=== PATIENT | female | born 1960 | race Caucasian/White ===

== ENCOUNTER 2016-08-26 11:13 | Emergency (ER) | payer OTHER ==
--- NOTE | ~2016-08-26 | CT16 ---
[facility] A Service of [facility] RADIOLOGY TEXT RESULTS PATIENT: RITA WRIGHT LOCATION: SED : 58 UNIT #: [id number] AGE: [address]: Connie Pedersen MD SEX: F ORDER DR: [id number] [address] [address] [id number] E MR#: [id number] Acc #: [id number] NAME: RITA WRIGHT : 1960 SEX: F STUDY DATE/TIME: 08/26/2016 13:16 UNIT: SED ROOM: STUDY DESCRIPTION: CT Angio Chest for PE Attending Physician: Connie Pedersen M.D. Ordering Physician: Connie Pedersen M.D. Primary Care Physician: Kai Dill M.D. MEDICAL IMAGING REPORT This report is preliminary unless electronic signature is present. EXAM CT angiogram of the chest for pulmonary embolism, 08/26/2016 13:16 hours HISTORY 56-year-old woman complaining of acute onset of shortness of air with right upper chest pain beginning at 10:00 a.m. today. Evaluate for pulmonary embolism. COMPARISON CT angiogram of the chest, 11/06/[address] angiographic images were obtained from the thoracic inlet through the adrenal glands. 3-D sagittal and coronal reconstructions were performed. Contrast was Isovue-370, 100 mL IV. Total exam DLP 694 mGy-cm. This CT exam was performed with one or more of the following radiation dose reduction techniques: automatic exposure control, adjustment of mA and/or kV according to patient size, and iterative reconstruction. FINDINGS Images through the thoracic inlet demonstrate no thyroid lesion or supraclavicular adenopathy. Images through the chest demonstrate diagnostic quality opacification of the pulmonary arteries which are normal in caliber. There are no filling defects present to suggest the presence of pulmonary emboli. The aorta is moderately well opacified. The aorta is within normal limits for size and there is no dissection. The cardiac chambers and pericardium are normal. There is no pathologic adenopathy. The esophagus is unremarkable. Lung window images demonstrate no acute pulmonary densities. There is no STS. [facility] A Service of [facility] RADIOLOGY TEXT RESULTS PATIENT: RITA WRIGHT LOCATION: SED : 58 UNIT #: [id number] AGE: [address]: Connie Pedersen MD SEX: F ORDER DR: bleb or bullae. There is very minimal linear density at both extreme lung bases similar to 11/06/2005, likely chronic atelectasis or scar. Limited views through the upper abdomen are unremarkable. IMPRESSION 1. No evidence of pulmonary embolism. No aortic aneurysm or dissection. 2. Minimal linear density at both lung bases dependently similar to 2005 consistent with chronic atelectasis or scar. There is no pleural effusion or pneumothorax. No rib lesion seen. Dictated by... Kacy Jonas M.D. THIS IS AN ELECTRONICALLY VERIFIED REPORT Kacy Jonas M.D. at 08/27/2016 9:23 AM Violeta TD: 08/26/2016 15:20 JOB #: [id number] MEDICAL IMAGING REPORT Page 1 of 1
--- NOTE | ~2016-08-26 | EKG ---
PATIENT: RITA WRIGHT UNIT #: [id number] Ventricular Rate: 91 BPM Atrial Rate: 91 BPM P-R Interval: 122 ms QRS Duration: 66 ms Q-T Interval: 320 ms QTC Calculation(Bezet): 393 ms P [place]: 24 degrees Calculated R [place]: 29 degrees Calculated T [place]: 46 degrees Diagnosis Line: Normal sinus rhythm Diagnosis Line: Normal ECG Diagnosis Line: When compared with ECG of 12-APR-2009 14:04, Diagnosis Line: Vent. rate has increased BY 35 BPM Diagnosis Line: Confirmed by PAUL PUCKETT MD ([id number]) on Diagnosis Line: 08/27/2016 10:58:09 AM INTERPRETING MD: ITALO ALFREDO
--- NOTE | ~2016-08-26 | CR72 ---
[facility] A Service of [facility] RADIOLOGY TEXT RESULTS PATIENT: RITA WRIGHT JANICE LOCATION: SED : 58 UNIT #: [id number] AGE: [address]: Connie Pedersen MD SEX: F ORDER DR: [id number] [address] [address] [id number] E MR#: [id number] Acc #: [id number] NAME: RITA WRIGHT : 1960 SEX: F STUDY DATE/TIME: 08/26/2016 11:41 UNIT: SED ROOM: STUDY DESCRIPTION: CR Chest Single View Portable Attending Physician: Connie Pedersen M.D. Ordering Physician: Connie Pedersen M.D. Primary Care Physician: Kai Dill M.D. MEDICAL IMAGING REPORT This report is preliminary unless electronic signature is present. EXAM Chest portable 08/26/2016 1141 hours HISTORY 56-year-old woman with shortness of air, right upper chest pain upon awakening today. COMPARISON 10/16/2010. FINDINGS Portable upright chest film demonstrates normal cardiac, mediastinal and aortic contours. The lungs are well expanded and clear. There is no pleural effusion, pneumothorax or rib lesion. IMPRESSION No acute cardiopulmonary findings. No change from 10/16/2010. Dictated by... Kacy Jonas M.D. THIS IS AN ELECTRONICALLY VERIFIED REPORT Kacy Jonas M.D. at 08/26/2016 2:31 PM KANU/mark TD: 08/26/2016 13:00 JOB #: [id number] MEDICAL IMAGING REPORT Page 1 of 1
[~2016-08-26 11:13] MED LIST: AMOXICILLIN PO; BACTRIM DS TABL1 TAB PO; CIPRO PO; DOXYCYCLINE MO100 MG PO; DOXYCYCLINE PO; FLEXERIL PO; FLEXERIL10 MG PO; HUMIBID DM1 TAB.SR . PO; HYCODAN60 ML 5MG/ PO; IBUPROFEN800 MG PO; NO MEDICATIONS; OMNICEF300 MG PO; PHENERGAN25 M1 PO; PREDNISONE PO; PYRIDIUM PO; ROBITUSSIN A-C-S1 ML DOB; ULTRAM PO; VIBRAMYCIN100 M1 PO; ZITHROMAX PO
[2016-08-26] MEDS ORDERED: ANXIETY MED (11:14)
[2016-08-26 11:50] LABS: BASOPHIL% 0.3 % (0-2.5); EOSINOPHIL# 0.2 X10e3 (0-0.7); EOSINOPHIL% 2.7 % (0.0-7.0); HEMATOCRIT 42.7 % (35.0-45.0); HEMOGLOBIN 14.2 gm/dL (12.0-16.0); LYMPHOCYTE# 1.4 X10e3 (1.0-3.5); LYMPHOCYTE% 24.2 % (17.0-45.0); MEAN CELL VOLUME 87.9 FL (83-96); MEAN CORPUSCULAR HEMOGLOBIN 29.1 PG (28-34); MEAN CORPUSCULAR HGB CONC 33.2 g/dL (30-36); MEAN PLATELET VOLUME 9.5 FL (6.5-11.5); MONOCYTE# 0.4 X10e3 (0-1.0); MONOCYTE% 6.3 % (3.0-12.0); NEUTROPHIL# 3.8 X10e3 (1.5-7.1); NEUTROPHIL% 66.5 % (40-75); PLATELET COUNT 160 X10e3 (140-420); RED BLOOD COUNT 4.86 X10e (3.90-5.30); WHITE BLOOD COUNT 5.8 X10e3 (4.0-10.5)
[2016-08-26 11:54] LABS: POC - CKMB 1.6 ng/mL (0.0-7.9); POC - TROPONIN <0.05 ng/mL (<=0.05)
[2016-08-26 11:54] LABS: DIFF IND NO
[2016-08-26 12:06] LABS: ALBUMIN SERUM 4.1 g/dL (3.5-5.0); ALKALINE PHOSPHATASE 67 U/L (32-92); ALT (SGPT) 21 U/L (10-40); AST (SGOT) 23 U/L (10-42); BILIRUBIN,TOTAL 0.3 mg/dL (0.2-2.0); BLOOD UREA NITROGEN 13 mg/dL (9-23); BUN/CREATININE RATIO 14.44; CARBON DIOXIDE 26 mmol/L (22-31); CHLORIDE 104 mmol/L (100-111); CREATININE SERUM 0.9 mg/dL (0.6-1.4); GLUCOSE FASTING 101 mg/dL (70-110); PARTIAL THROMBOPLASTIN TIME 26.6 SECONDS (25.6-38.1); POTASSIUM 4.1 mmol/L (3.5-5.1); PROTEIN TOTAL SERUM 7.2 g/dL (6.0-8.3); SODIUM 138 mmol/L (135-145)
[2016-08-26 12:07] LABS: BILIRUBIN, DIRECT <0.1 mg/dL (0.0-0.2); BILIRUBIN,INDIRECT 0.2 mg/dL (0.0-0.9)
[2016-08-26 13:27] LABS: POC - CKMB <1.0 ng/mL (0.0-7.9); POC - TROPONIN <0.05 ng/mL (<=0.05)
== END 2016-08-26 14:49 | disposition home or self-care (01) ==
LOC: SED 11:13
PROVIDERS: Emergency Medicine
DX: R09.1 Pleurisy (principal); F32.9 Major depressive disorder, single episode, unspecified
CPT/HCPCS: 36415; 71010; 71275; 80048; 80076; 82553; 84484; 85025; 85379; 85610; 85730; 93005; 96374; 99285; J1885; Q9967

== ENCOUNTER 2016-09-15 18:28 | Emergency (ER) | payer OTHER ==
[~2016-09-15] VITALS: Ht 167.6 cm; Wt 84.4 kg
--- NOTE | ~2016-09-15 | CT4 ---
[facility] A Service of [facility] RADIOLOGY TEXT RESULTS PATIENT: RITA WRIGHT JANICE [place] [facility] 58 UNIT #: [id number] AGE: [address]: Smooth Hewitt MD SEX: F ORDER DR: [id number] [address] [address] [id number] E MR#: [id number] Acc #: [id number] NAME: RITA WRIGHT : 1960 SEX: F STUDY DATE/TIME: 09/15/2016 20:49 UNIT: SED ROOM: STUDY DESCRIPTION: CT Abd and Pelv Wo Cont Attending Physician: Smooth Hewitt M.D. Ordering Physician: Smooth Hewitt M.D. Primary Care Physician: Kai Dill M.D. MEDICAL IMAGING REPORT This report is preliminary unless electronic signature is present. EXAMINATION CT abdomen and pelvis without contrast. DATE 09/15/2016 at 20:49 HISTORY 56-year-old female with left flank pain for 1 day. Previous history of kidney stones and frequent urinary tract infections. COMPARISON Noncontrast CT abdomen 12/26/2006. PROCEDURE 3 mm noncontrast axial images through the abdomen and pelvis. Enteric contrast was not administered. Sagittal and coronal reformatted images were obtained. This CT exam was performed with one or more of the following radiation dose reduction techniques: automatic exposure control, adjustment of mA and/or kV according to patient size, and iterative reconstruction. FINDINGS ABDOMEN FINDINGS: There is mild left hydronephrosis and left hydroureter. However, no ureteral stone or urinary bladder stone is identified. Findings may indicate a recently passed left side stone. No intrarenal calculi are identified. 7 mm low-density lesion projects posteriorly from the right upper renal pole with density measurements compatible with benign cyst. Lung bases are clear. Heart size is normal. Liver, gallbladder, spleen, pancreas and adrenal glands are normal. There is a large stool burden [facility] A Service of [facility] RADIOLOGY TEXT RESULTS PATIENT: RITA WRIGHT JANICE LOCATION: SED : 58 UNIT #: [id number] AGE: [address]: Smooth Hewitt MD SEX: F ORDER DR: within the cecum and ascending colon, more moderate stool burden in the transverse colon. No obstructing abnormality is identified. Unopacified bowel appears grossly nonthickened and noninflamed. The appendix is normal. PELVIS FINDINGS: There is ill-defined soft tissue stranding surrounding the urinary bladder, raising the possibility of cystitis in the appropriate clinical context. The rectum is normal. No pelvic free fluid is identified. Multilevel degenerative changes within the lumbar spine. No acute osseous abnormalities are identified. IMPRESSION 1. Mild perivesical stranding may represent changes of cystitis. Correlate with clinical symptoms and urinalysis findings. 2. There is mild left hydronephrosis and hydroureter but no urinary tract stone is seen. No stones seen within the urinary bladder. Findings could represent changes of recently passed left side stone. 3. Suspected subcentimeter right renal cyst. 4. Large stool burden in the ascending colon, greatest in the cecum. No obstructing abnormality seen. Correlate for constipation symptoms. 5. The appendix is normal. Dictated by... Macarena Hurst M.D. THIS IS AN ELECTRONICALLY VERIFIED REPORT Macarena Hurst M.D. at 09/16/2016 9:49 PM Erika TD: 09/15/2016 22:42 JOB #: [id number] MEDICAL IMAGING REPORT Page 1 of 1
[~2016-09-15 18:28] MED LIST changes: +ANXIETY MED
[2016-09-15 20:37] LABS: URINE SOURCE CLEAN CATCH
[2016-09-15 20:39] LABS: URINE APPEARANCE SL CLOUDY; URINE BILIRUBIN NEG (NEG); URINE BLOOD 3+ (NEG); URINE COLOR YELLOW; URINE GLUCOSE NEG (NORM); URINE KETONE TRACE (NEG); URINE LEUKOCYTE ESTERASE 3+ (NEG); URINE NITRATE NEG (NEG); URINE PH 5.5 (5-8); URINE PROTEIN 2+ (NEG); URINE SPECIFIC GRAVITY >=1.030 (1.003-1.035)
[2016-09-15 20:41] LABS: MICRO INDICATED? YES
[2016-09-15 20:42] LABS: URINE BACTERIA 1+ (NEG); URINE MUCUS PRESENT; URINE SQUAMOUS EPITHELIAL CELL OCCAS /[HPF]; URINE TRANSITIONAL EPI CELLS FEW /[HPF]; URINE WBC 200-300 /[HPF] (0-5)
[2016-09-15 21:02] LABS: BASOPHIL% 0.4 % (0-2.5); EOSINOPHIL# 0.1 X10e3 (0-0.7); EOSINOPHIL% 1.1 % (0.0-7.0); HEMATOCRIT 41.9 % (35.0-45.0); HEMOGLOBIN 13.9 gm/dL (12.0-16.0); LYMPHOCYTE# 1.3 X10e3 (1.0-3.5); LYMPHOCYTE% 13.7 % (17.0-45.0); MEAN CELL VOLUME 88.5 FL (83-96); MEAN CORPUSCULAR HEMOGLOBIN 29.3 PG (28-34); MEAN CORPUSCULAR HGB CONC 33.1 g/dL (30-36); MEAN PLATELET VOLUME 9.4 FL (6.5-11.5); MONOCYTE# 0.5 X10e3 (0-1.0); MONOCYTE% 5.6 % (3.0-12.0); NEUTROPHIL# 7.4 X10e3 (1.5-7.1); NEUTROPHIL% 79.2 % (40-75); PLATELET COUNT 195 X10e3 (140-420); RED BLOOD COUNT 4.74 X10e (3.90-5.30); WHITE BLOOD COUNT 9.4 X10e3 (4.0-10.5)
[2016-09-15 21:05] LABS: DIFF IND NO
[2016-09-15 21:21] LABS: ALBUMIN SERUM 4.3 g/dL (3.5-5.0); BILIRUBIN, DIRECT 0.1 mg/dL (0.0-0.2); BILIRUBIN,INDIRECT 0.5 mg/dL (0.0-0.9); BILIRUBIN,TOTAL 0.6 mg/dL (0.2-2.0); BUN/CREATININE RATIO 27.77; CALCIUM SERUM 8.7 mg/dL (8.4-10.2); CREATININE SERUM 0.9 mg/dL (0.6-1.4); POTASSIUM 4.2 mmol/L (3.5-5.1); PROTEIN TOTAL SERUM 7.9 g/dL (6.0-8.3)
== END 2016-09-15 22:43 | disposition home or self-care (01) ==
LOC: SED 18:28
PROVIDERS: Emergency Medicine
DX: N39.0 Urinary tract infection, site not specified (principal)
CPT/HCPCS: 36415; 74176; 80048; 80076; 81003; 83690; 85025; 87086; 96361; 96374; 96375; 99284; J0696; J1885; J2405

== ENCOUNTER 2016-09-17 21:41 | Emergency (ER) | payer OTHER ==
[~2016-09-17] VITALS: Ht 167.6 cm; Wt 84.4 kg
[2016-09-17 22:11] LABS: URINE SOURCE CLEAN CATCH
[2016-09-17 22:17] LABS: URINE APPEARANCE CLOUDY; URINE BLOOD 1+ (NEG); URINE GLUCOSE NEG (NEG); URINE KETONE NEG (NEG); URINE LEUKOCYTE ESTERASE 3+ (NEG); URINE NITRATE POS (NEG); URINE PROTEIN 3+ (NEG); URINE SPECIFIC GRAVITY 1.019 (1.003-1.035)
[2016-09-17 22:20] LABS: CULTURE INDICATED? YES; URBCS1 AUWI 25-50 /[HPF] (0-2); URINE BACTERIA AUWI NEG (NEGATIVE); URINE SQUAMOUS EPITHELIAL CELL OCC /[HPF]; UWBCS1 AUWI 50-100 (0-5)
[2016-09-17 22:22] LABS: URINE BILIRUBIN NEG (NEG)
[2016-09-17 22:31] LABS: URINE COLOR ORANGE
[2016-09-18 00:05] LABS: BASOPHIL% 0.2 % (0-2.5); EOSINOPHIL# 0.2 X10e3 (0-0.7); EOSINOPHIL% 2.5 % (0.0-7.0); HEMATOCRIT 41.8 % (35.0-45.0); HEMOGLOBIN 13.6 gm/dL (12.0-16.0); LYMPHOCYTE# 1.4 X10e3 (1.0-3.5); LYMPHOCYTE% 17.7 % (17.0-45.0); MEAN CELL VOLUME 88.8 FL (83-96); MEAN CORPUSCULAR HEMOGLOBIN 28.8 PG (28-34); MEAN CORPUSCULAR HGB CONC 32.5 g/dL (30-36); MEAN PLATELET VOLUME 9.8 FL (6.5-11.5); MONOCYTE# 0.6 X10e3 (0-1.0); MONOCYTE% 7.6 % (3.0-12.0); NEUTROPHIL# 5.8 X10e3 (1.5-7.1); PLATELET COUNT 198 X10e3 (140-420); RED BLOOD COUNT 4.71 X10e (3.90-5.30); RED CELL DISTRIBUTION WIDTH 13.8 % (11.0-15.5); WHITE BLOOD COUNT 8.1 X10e3 (4.0-10.5)
[2016-09-18 00:07] LABS: DIFF IND NO
[2016-09-18 00:19] LABS: ALBUMIN SERUM 4.1 g/dL (3.5-5.0); BILIRUBIN,TOTAL 0.3 mg/dL (0.2-2.0); CALCIUM SERUM 8.6 mg/dL (8.4-10.2); GLOM FILT RATE Estimated 62.5 mL/min (>60); POTASSIUM 3.9 mmol/L (3.5-5.1); PROTEIN TOTAL SERUM 6.9 g/dL (6.0-8.3)
== END 2016-09-18 00:57 | disposition home or self-care (01) ==
LOC: CED 21:41
PROVIDERS: Emergency Medicine
DX: N39.0 Urinary tract infection, site not specified (principal); Z87.442 Personal history of urinary calculi; F41.9 Anxiety disorder, unspecified
CPT/HCPCS: 36415; 80053; 81003; 83690; 85025; 87086; 96361; 96365; 96375; 99284; J0696; J2270